=== PATIENT | female | born 1975 | race Caucasian/White ===

== ENCOUNTER 2016-07-10 17:18 | Emergency (ER) | payer OTHER ==
[~2016-07-10] VITALS: Ht 162.6 cm; Wt 94.4 kg
[~2016-07-10 17:18] MED LIST: AMLODIPINE BESY10 MG PO; FIORICET,ESG1 TABLET PO; HYDROCHLOROTHIA25 MG PO; LEXAPRO20 MG PO; METHOCARBAMOL500 MG PO; SIMVASTATIN10 MG PO; VICODIN,LORT1 TABLET PO; XANAX0.25 MG PO; ZOFRAN ODT4 MG PO
[2016-07-10 18:29] LABS: ADD MIUA? NO; BILIRUBIN NEGATIVE; BLOOD NEGATIVE; COLOR YELLOW ((YELLOW)); GLUCOSE (STRIP) NEGATIVE; KETONES NEGATIVE; LEUKOCYTES NEGATIVE; NITRITE NEGATIVE; PROTEIN (STRIP) NEGATIVE; SPECIFIC GRAVITY 1.012 (1.000-1.030); UCUL ADDED? NO; UROBILINOGEN 0.2 MG/DL (0.2-1.0)
[2016-07-10 19:14] LABS: CHLORIDE 97 mEq/L (99-109); POTASSIUM 3.4 mEq/L (3.7-5.4); SODIUM 136 mEq/L (136-147)
[2016-07-10 19:15] LABS: HEMATOCRIT 48.6 % (36.0-46.0); MCH 35.3 PG (29.0-34.0); MCHC 35.6 G/DL (30.0-36.0); MCV 99.2 FL (83-99); MEAN PLAT.VOLUME 10.6 uM^3 (9.5-12.4); PLATELET COUNT 203 K/uL (156-360); RBC DIS.WIDTH-SD 46.9 % (39-53); WHITE BLOOD COUNT 7.2 K/uL (4.1-10.2)
[2016-07-10 19:16] LABS: GLUCOSE 85 mg/dL (70-99)
[2016-07-10 19:17] LABS: ANION GAP 12 MEQ/L (2-14)
[2016-07-10 19:18] LABS: TOTAL BILIRUBIN 0.5 mg/dL (0.0-1.0)
[2016-07-10 19:20] LABS: ALKALINE PHOSPHATASE 79 IU/L (3-129); GFR ESTIMATE (CALCULATED) > 59 mL/min/
[2016-07-10 19:21] LABS: UREA NITROGEN (BUN) 12 mg/dL (9-23)
[2016-07-10] MEDS ORDERED: NORCO 5/3251 TABLET PO (22:27)
[2016-07-10 22:31] VITALS: BP 137/67
== END 2016-07-10 22:34 | disposition home or self-care (01) ==
LOC: EME 17:18
DX: R10.13 Epigastric pain (principal); R10.11 Right upper quadrant pain; R07.89 Other chest pain; F17.200 Nicotine dependence, unspecified, uncomplicated
CPT/HCPCS: 74176; 76705; 80053; 81003; 85027; 99281; 99285